=== PATIENT | female | born 1995 | race Caucasian/White ===

== ENCOUNTER 2017-06-22 08:44 | Emergency (ER) | payer BC, OTHER ==
[~2017-06-22] VITALS: Ht 154.9 cm; Wt 79.4 kg
[2017-06-22 10:07] VITALS: BP 128/86
== END 2017-06-22 11:00 | disposition home or self-care (01) ==
LOC: ER 08:44
DX: S61.511A Laceration without foreign body of right wrist, initial encounter (principal); W26.0XXA Contact with knife, initial encounter; Y93.89 Activity, other specified; Y92.89 Other specified places as the place of occurrence of the external cause; Y99.8 Other external cause status
CPT/HCPCS: 12002